=== PATIENT | male | born 1950 | race Caucasian/White ===

== ENCOUNTER → 2016-08-05 07:42 | Outpatient (CLI) | payer MEDICARE ==
[2015-05-20 08:32] VITALS: BMI 30.1
[~2016-08-05 07:42] MED LIST: BAYER CHEWABLE81 MG PO; CELEXA20 MG PO; CLARITIN10 MG/TAB PO; COZAAR50 MG PO; DESYREL50 MG; HYDROCODON-ACE1 EAC7 PO; IMDUR60 MG PO; MOBIC7.5 MG PO; NORVASC10 MG PO; PLAVIX75 MG PO; PRAVACHOL40 MG; PRAVACHOL40 MG PO; PRILOSEC20 MG PO; PROTONIX40 MG PO; SPIRIVA18 MCG; SPIRIVA18 MCG INH; SYMBICORT 16010.2 GM INH; TRAZODONE HCL150 MG PO; VENTOLIN HFA18 GM INH; VOLTAREN100 GM TP; ZESTORETIC 20/21 TAB PO; ZYLOPRIM100 MG PO
[2016-08-05 08:40] LABS: ALBUMIN 3.8 g/dL (3.4-5.0); BILIRUBIN - DIRECT 0.09 mg/dL (0.00-0.30); BILIRUBIN - INDIRECT 0.24 mg/dL (0.00-1.00); BILIRUBIN - TOTAL 0.33 mg/dL (0.2-1.3); PROTEIN - SERUM 7.2 g/dL (6.4-8.2)
== END ==
LOC: D.US 07:42
PROVIDERS: Internal Medicine Gastroenterology
DX: K76.0 Fatty (change of) liver, not elsewhere classified (principal)

== ENCOUNTER 2016-08-08 11:15 | Emergency (ER) | payer MEDICARE ==
[2015-05-20 08:32] VITALS: BMI 30.1
[2016-08-08 12:54] LABS: BASOPHILS 0.6 % (0-2); EOSINOPHILS 2.8 % (0-7); HEMATOCRIT 41.6 % (42.0-54.0); HEMOGLOBIN 14.2 g/dL (13.5-17.5); IMMATURE GRANULOCYTES 0.2 % (0-5); LYMPHOCYTES 34.8 % (15-50); MCH 33.3 pg (26.0-34.0); MCHC 34.1 g/dL (31.0-37.0); MCV 97.4 fL (80.0-100.0); MEAN PLATELET VOLUME 9.8 fL (7.4-10.4); MONOCYTES 10.2 % (2-11); NEUTROPHILS 51.4 % (40-80); RBC 4.27 10x6/uL (4.20-6.10); RDW 12.8 % (11.5-14.5); WBC 5.1 10x3/uL (4.8-10.8)
[2016-08-08 13:19] LABS: PLATELET COUNT 149 10x3/uL (130-400)
[2016-08-08 13:23] LABS: CALC OSMOLALITY 277 mosm/kg (275-300); CALCIUM 9.4 mg/dL (8.5-10.1); CARBON DIOXIDE 26.9 mmol/L (21.0-32.0); CHLORIDE - SERUM 104 mmol/L (98-107); CREATININE - SERUM 1.2 mg/dL (0.6-1.3); GLUCOSE 101 mg/dL (74-106); POTASSIUM - SERUM 4.6 mmol/L (3.5-5.1); SODIUM 138 mmol/L (136-145); UREA NITROGEN 17 mg/dL (7-18); eGFR NON AFRICAN AMERICAN 65 mL/min (90-120)
[2016-08-08 13:26] LABS: TROPONIN-I < 0.017 ng/mL (0.000-0.060)
== END 2016-08-08 16:38 | disposition home or self-care (01) ==
LOC: D.ER 11:15
PROVIDERS: Emergency Medicine
DX: R07.9 Chest pain, unspecified (principal); J44.9 Chronic obstructive pulmonary disease, unspecified; I10 Essential (primary) hypertension; F17.200 Nicotine dependence, unspecified, uncomplicated

== ENCOUNTER 2016-08-23 12:00 | Outpatient (CLI) | payer MEDICARE ==
[~2016-08-23] VITALS: Ht 177.8 cm; Wt 93.2 kg
--- NOTE | ~2016-08-23 | HEMODYNAMI ---
PATIENT:ALLY VALDEZ MEDICAL RECORD: [id number] : 52 LOCATION:[facility] ADMISSION DATE: 08/23/16 Generatedon:08/23/201612:44 Patient name: ALLY VALDEZ Patient #: [id number] SSN: : 1950 Date of study: 08/23/2016 Page: Of Hemodynamic Procedure Report Patient Data Patient Demographics Procedure consent was obtained First Name: ALLY Gender: Male Last Name: COURTNEY : 1950 [facility] Initial: TAMARA Age: 65 year(s) Patient #: [id number] Race: Unknown Additional ID: [id number] Contact details Address: [address] [place] [address] State: [place] City: [place] Zip code: [address] Past Medical History Allergies: No known allergies Admission Admission Data Admission Date: 08/23/2016 Admission Time: 11:00 Lab Results Lab Result Date: 08/23/2016 Lab Result Time: 11:30 CBC Name Units Result Min Max Hematocrit % 41.3 -*(----)-- 42 54 Hemoglobin g/dl 14.1 --(*---)-- 13.5 17.5 Procedure Procedure Types Cath Procedure Diagnostic Procedure [facility] w/Coronaries FFR/IVUS Intra-Coronary IVUS Initial Intra-Coronary IVUS Additional Procedure Description Procedure Date Procedure Date: 08/23/2016 Procedure Start Time: 12:20 Procedure End Time: 12:38 Procedure Staff Name Function Charlene Godoy RT Scrub Rosendo Thompson RN Nurse Ed Stuart MD Performing Physician Doug Ceron RT Monitor Procedure Data Cath Procedure Fluoroscopy Diagnostic fluoroscopy Total fluoroscopy Time: 4.5 time: 4.5 min min Diagnostic fluoroscopy Total fluoroscopy dose: 574 dose: 574 mGy mGy Contrast Material Contrast Material Type Amount (ml) Isovue 300 82 Entry Location Entry Primary Successful Side Size Upsize Upsize Entry Closure Saravia ccessful Closure Location (Fr) 1 (Fr) 2 (Fr) Remarks Device Remarks Radial Right 6 Fr Mechanical artery Short Compression Estimated blood loss: 5 ml Diagnostic catheters Device Type Used For End Catheter Placement Terumo 5Fr Wasco 110cm Procedure catheter Procedure Complications No complications Procedure Medications Medication Administration Route Dosage Oxygen NC 2 l/min Heparin Flush Bag added to field 2 bags (1000units/500ml NS) 0.9% NaCl I.V. 100 ml/hr Radial Cocktail added to field 1 syringe (Verapomil 2mg/Nitro 400mcg/Heparin 1500units) Fentanyl I.V. 100 mcg Versed I.V. 2 mg Fentanyl I.V. 100 mcg Versed I.V. 2 mg Radial Cocktail I.A. 1 syringe (Verapomil 2mg/Nitro 400mcg/Heparin 1500units) Heparin Bolus I.V. 4000 units Hemodynamics Rest Heart Rate: 60 (bpm) Snapshots Pre Cath Intra NCS Post Cath Vital Signs Time Heart Resp SPO2 etCO2 [id number] NIBP (mmHg) Rhythm Pain Sedation Rate (ipm) (%) (mmHg) (mmHg) Status Level (bpm) 12:08:28 57 15 96 0 0 129/75(109) NSR 0 (11) 10(A) , No pain 12:12:42 55 25 98 0 0 133/71(109) NSR 0 (11) 10(A) , No pain 12:17:01 55 19 97 0 0 116/67(92) NSR 0 (11) 10(A) , No pain 12:21:12 60 18 96 0 0 112/67(91) NSR 0 (11) 9(A) , No pain 12:25:19 73 19 93 0 0 103/74(100) NSR 0 (11) 9(A) , No pain 12:29:27 63 16 94 0 0 116/61(89) NSR 0 (11) 9(A) , No pain 12:33:37 70 18 95 0 0 123/77(97) NSR 0 (11) 9(A) , No pain 12:37:51 69 17 92 0 0 136/73(103) NSR 0 (11) 9(A) , No pain Medications Time Medication Route Dose Verified Delivered Reason Note s Effectiveness by by 12:07:51 Oxygen NC 2 l/min Rosendo Robbins Per physician Jay Thompson RN RN 12:08:01 Heparin Flush added 2 bags Rosendo Robbins used for Bag to Jay Thompson RN procedure (1000units/500ml field RN NS) 12:08:12 0.9% NaCl I.V. 100 Rosendo Rosendo Per physician ml/hr Jay Thompson RN RN 12:08:41 Radial Cocktail added 1 Rosendo Rosendo used for (Verapomil to syringe Jay Thompson RN procedure 2mg/Nitro field RN 400mcg/Hepari 12:17:42 Fentanyl I.V. 100 mcg Rosendo Rosendo for sedation Jay Thompson RN RN 12:17:50 Versed I.V. 2 mg Rosendo Rosendo for sedation Jay Thompson RN RN 12:20:50 Fentanyl I.V. 100 mcg Rosendo Rosendo for sedation Jay Thompson RN RN 12:20:52 Versed I.V. 2 mg Rosendo Rosendo for sedation Jay Thompson RN RN 12:22:20 Radial Cocktail I.A. 1 Rosendo Philiprey for (Verapomil syringe Jay Stuart MD vasodilation 2mg/Nitro RN 400mcg/Hepari 12:27:09 Heparin Bolus I.V. 4000 Rosendo Philiprey for units Jay Stuart MD anticoagulation nanny babysitter Log Time Note 11:24:28 Time tracking: Regular hours 11:24:32 Plan of Care:Hemodynamics will remain stable., Cardiac rhythm will remain stable., Comfort level will be maintained., Respiratory function will remain adequate., Patient/ family verbilizes understanding of procedure., Procedure tolerated without complication., Recovers from procedure without complications.. 11:50:25 Charlene Counts RT(R) sent for patient. Start room use. 12:07:16 Patient received from Pre/Post Procedure Room to CCL 1 Alert and oriented. Tansferred to table in Supine position. 12:07:17 Correct patient and procedure confirmed by team. 12:07:17 Warm blankets applied, and chiquita hugger turned on for patient comfort. 12:07:19 Signed procedure consent form obtained from patient. 12:07:20 ECG and BP/O2 sat monitors applied to patient. 12:07:21 Vital chart was started 12:07:22 Full Disclosure recording started 12:07:51 Oxygen 2 l/min NC was administered by Rosendo Thompson RN; Per physician; 12:08:01 Heparin Flush Bag (1000units/500ml NS) 2 bags added to field was administered by Rosendo Thompson RN; used for procedure; 12:08:12 0.9% NaCl 100 ml/hr I.V. was administered by Rosendo Thompson RN; Per physician; 12:08:41 Radial Cocktail (Verapomil 2mg/Nitro 400mcg/Heparin 1500units) 1 syringe added to field was administered by Rosendo Thompson RN; used for procedure; 12:12:57 Baseline sample Acquired. 12:13:02 Rhythm: sinus rhythm 12:13:56 Pre-procedure instructions explained to patient. 12:13:57 Pre-op teaching completed and patient verbalized understanding. 12:13:59 Family in waiting room. 12:14:00 Patient NPO since Midnight. 12:14:07 Patient allergic to No known allergies 12:14:09 Is the patient allergic to Iodine/contrast media? No. 12:14:10 Is patient on blood thinner?Yes 12:14:12 ACC The patient was administered the following blood thiners within the last 24 hours: ACCPlavix 12:14:16 Patient diabetic? No. 12:14:19 Snore? Yes 12:14:19 Previous problem with sedation/anesthesia? No ? 12:14:20 Sleep apnea? Yes 12:14:21 Deviated septum? No 12:14:22 Opens mouth fully? Yes 12:14:30 Airway obstruction? Yes COPD 12:14:31 Sticks out tongue? Yes 12:14:34 Dentures? No ? 12:14:41 Modified Kenny's test Ulnar < 7 seconds 12:14:42 Patient pain scale 0/10 ?. 12:14:51 IV patent on arrival in left hand with 0.9% NaCl at [facility]. 12:15:46 Lab Result : Hematocrit 41.3 % 12:15:46 Lab Result : Hemoglobin 14.1 g/dl 12:15:49 Lab results completed and on chart. 12:15:51 Right Radial & Right Groin area was prepped with chlora-prep and draped in sterile fashion 12:15:52 Sharps counted by scrub and verified by R.N. 12:15:52 Alarms reviewed by R. N. 12:16:16 Use device set Radial Dx 12:16:17 Tegaderm 4 x 4 opened to sterile field. 12:16:17 MBrace Wrist Support opened to sterile field. 12:16:18 Acist Manifold opened to sterile field. 12:16:19 Acist Hand Control opened to sterile field. 12:16:20 Medline Cath Pack opened to sterile field. 12:16:20 Acist Syringe opened to sterile field. 12:16:21 Terumo 6Fr Slender Glidesheath opened to sterile field. 12:16:21 Bag Decanter opened to sterile field. 12:16: St Anup 260cm J .035 wire opened to sterile field. 12:16:33 Physician paged 12:17:06 Physician arrived 12:17:07 Final Timeout: patient, procedure, and site verified with staff and physician. All members of the team are in agreement. 12:17:07 --------ALL STOP TIME OUT------ 12:17:09 Right Radial & Right Groin site verified by team. 12:17:12 Physical assessment completed. ASA score P 2 - A patient with mild systemic disease as per Ed Stuart MD. 12:17:14 Sedation plan: IV Moderate Sedation Versed, Fentanyl 12:17:42 Fentanyl 100 mcg I.V. was administered by Rosendo Thompson RN; for sedation; 12:17:50 Versed 2 mg I.V. was administered by Rosendo Thompson RN; for sedation; 12:20:37 Zero performed for pressure channel P1 12:20:43 Procedure started. 12:20:48 Local anesthetic to right radial artery with Lidocaine 2% by Ed Stuart MD.INITIAL ACCESS ONLY 12:20:50 Fentanyl 100 mcg I.V. was administered by Rosendo Thompson RN; for sedation; 12:20:52 Versed 2 mg I.V. was administered by Rosendo Thompson RN; for sedation; 12:21:20 A 6 Fr Short sheath was inserted into the Right Radial artery 12:21:24 Zero performed for pressure channel P1 12:22:20 Radial Cocktail (Verapomil 2mg/Nitro 400mcg/Heparin 1500units) 1 syringe I.A. was administered by Ed Stuart MD; for vasodilation; 12:22:35 A Terumo 5Fr Wasco 110cm catheter was advanced over the wire and used for Procedure. 12::53 LV gram done using WOODRUFF 12::56 Injector settings: Ml/sec: 5, Volume: 15, 12:23:17 EF : 60 % 12:23:23 LCA angiography performed. 12:24:25 Loami [place]agleye IVUS Catheter opened to sterile field. 12:24:26 Merit BasixCompak Inflation Kit opened to sterile field. 12:24:28 Arteaga Whisper J 300cm 0.014 guide wire opened to sterile field. 12:25:15 RCA angiography performed. 12:25:16 Catheter removed. 12:25:51 Cordis 6FR XBLAD 3.5 guide catheter opened to sterile field. 12:25:58 6 Fr XBLAD 3.5 guide catheter was inserted over the wire 12:27:09 Heparin Bolus 4000 units I.V. was administered by Ed Stuart MD; for anticoagulation; 12:27:14 WHISPER wire advanced. 12:27:31 Wire advanced across lesion. 12:27:59 IVUS catheter advanced over wire. 12:29:45 IVUS pass to Circ lesion performed. 12:29:47 IVUS catheter removed over wire. 12:29:55 Wire redirected to LAD. 12:30:01 IVUS catheter advanced over wire. 12:30:05 IVUS pass to LAD lesion performed. 12:30:49 IVUS catheter removed over wire. 12:30:53 Wire removed. 12:30:54 Guide catheter removed. 12:31:03 Terumo TR Band Standard opened to sterile field. 12:32:58 Sheath removed intact; hemostasis achieved with Mechanical Compression to the Right Radial artery. 12:33:01 Procedure ended.(Physican Out) 12:33:05 Fluoroscopy time 04.50 minutes. 12:33:10 Fluoroscopy dose: 574 mGy 12:33:10 Flurop Dose total: 574 12:36:17 Contrast amount:Isovue 300 82ml. 12:36:19 Sharps counted by scrub and verified by R.N. 12:36:25 TR band inflated with 11cc of air. 12:36:40 Insertion/operative site no bleeding no hematoma. 12:36:45 Post Procedure Pulses reassessed and unchanged 12:36:47 Post-procedure physical assessment completed. ASA score P 2 - A patient with mild systemic disease as per Ed Stuart MD. 12:36:49 Post procedure rhythm: unchanged. 12:36:50 Estimated blood loss: 5 ml 12:36:52 Post procedure instruction explained to patient.Patient verbalizes understanding. 12:36:52 Post procedure instruction explained to patient.Patient verbalizes understanding. 12:36:53 Patient needs reinforcement of post procedure teaching. 12:37:06 Procedure type changed to Cath procedure, Diagnostic procedure, LHC, LHC w/Coronaries, FFR/IVUS, Intra-Coronary IVUS Initial, Intra-Coronary IVUS Additional 12:38:22 Procedure and supply charges have been captured, reviewed, submitted and are correct. 12:38:24 Procedure Complication : No complications 12:38:26 Vital chart was stopped 12:38:27 See physician's report for complete and final results. 12:38:28 Report given to Pre/Post Procedure Room. 12:38:30 Patient transfered to Pre/Post Procedure Room with Stretcher. 12:38:32 Full Disclosure recording stopped 12:38:32 Procedure ended. 12:38:39 End room use (Document Last) 12:39:14 H&P Date Dictated: 08/10/2016 Within 30 days and on chart., H&P Addendum completed by physician on day of procedure. (MUST COMPLETE FOR ALL OUTPATIENTS). Device Usage Item Name Manufacture Quantity Catalog Hospital Part Current Minimal Lot# / Number Charge Number Stock Stock Serial# Code MBrace [facility] 1 140-0250-00 [id number] 73229 609485 5 Wrist Vascular Support Dynamics Tegaderm 4 3M 1 1626W 676308 304145 949777 5 x 4 Acist Acist 1 34892 641667 396633 701943 5 Manifold Medical Systems Inc Acist Hand Acist 1 23319 718520 486345 848001 5 Control Medical Systems Inc Acist Acist 1 33327 902530 962526 158393 20 Syringe Medical Systems Inc Medline Cardinal 1 [id number] 351442 78445 638698 5 Cath Pack Health Bag Microtek 1 2002S [id number] 55419 914274 5 Decanter Medical Inc. Terumo 6Fr Terumo 1 [id number] 938234 075239 129340 [address] An[address] Anup 1 546951 111014 889215 312376 30 260cm J .035 wire Terumo 5Fr Terumo 1 75-6027 977160 829157 011691 5 Wasco 110cm catheter Loami Loami 1 [id number] 937193 725832 132417 8 [place] Eagleye IVUS Catheter [facility] 1 [id number] 809607 427992 339864 15 BasixCompak Medical Inflation Kit Arteaga Arteaga 1 [id number] 482485 995071 396449 5 Whisper J Vascular 300cm 0.014 guide wire Cordis 6FR Cardinal 1 [id number] 294220 813306 580657 10 XBLAD 3.5 Health guide catheter Terumo TR Terumo 1 [id number] 826679 445704 589065 40 Band Standard Signature Audit [place] Stage Time Signature Unsigned Intra-Procedure 08/23/2016 Doug Ceron RT(R) 12:40:42 PM RT(R) 08/23/2016 12:43:32 PM Intra-Procedure 08/23/2016 Doug Ceron 12:44:10 PM RT(R) Signatures Monitor : Doug Ceron RT Signature : Date : Time : [facility] [address] [place] [address]
[2016-08-23 11:01] VITALS: BP 139/62; Ht 177.8 cm; Wt 93.2 kg
[2016-08-23 11:57] LABS: BASOPHILS 0.9 % (0-2); EOSINOPHILS 2.8 % (0-7); HEMATOCRIT 41.3 % (42.0-54.0); HEMOGLOBIN 14.1 g/dL (13.5-17.5); IMMATURE GRANULOCYTES 0.2 % (0-5); MCHC 34.1 g/dL (31.0-37.0); MCV 93.9 fL (80.0-100.0); MEAN PLATELET VOLUME 9.7 fL (7.4-10.4); MONOCYTES 9.4 % (2-11); NEUTROPHILS 57.7 % (40-80); PLATELET COUNT 183 10x3/uL (130-400); RDW 12.4 % (11.5-14.5); WBC 4.3 10x3/uL (4.8-10.8)
[2016-08-23 12:10] LABS: ANION GAP 12.1 mmol/L (8-16); CALCIUM 9.1 mg/dL (8.5-10.1); CARBON DIOXIDE 27.2 mmol/L (21.0-32.0); CREATININE - SERUM 1.2 mg/dL (0.6-1.3); POTASSIUM - SERUM 4.3 mmol/L (3.5-5.1)
--- NOTE | 2016-08-30 15:49 | OP ---
PATIENT NAME: ALLY VALDEZ MEDICAL RECORD: [id number] :52 LOCATION:D.[facility] ADMISSION DATE: SURGEON: NAZANIN ESTEVES MD DATE OF OPERATION: 08/23/2016 PROCEDURES: 1. Left heart catheterization. 2. Selective coronary angiography. 3. Left ventriculogram. 4. Intravascular ultrasound of the LAD and left circumflex. INDICATIONS: Chest pain, coronary artery disease. PROCEDURE IN DETAIL: After informed consent was obtained and after detailed explanation of risks, benefits as well as alternative therapies, the patient elected to proceed with angiogram and heart catheterization. The right radial area was prepped and draped in normal sterile fashion. The right radial artery was cannulated via modified Seldinger technique with placement of 6-Estonian sheath. All catheters exchanged through this sheath. FINDINGS: Left ventriculogram was performed in the standard 30-degree WOODRUFF view, reveals good cardiac wall motion throughout all segments. Overall ejection fraction estimated at 60%. SELECTIVE CORONARY ANGIOGRAPHY: 1. Left main showed no significant angiographic disease. 2. Left anterior descending has [id number]-[id number] irregularities, but no flow-limiting stenosis. Intravascular ultrasound reveals that there is no significant angiographic disease. 3. Left circumflex has mild irregularities, but no flow-limiting stenosis. Intravascular ultrasound confirmed that there is no significant disease. 4. Right coronary has previously placed stents. These are widely patent with no significant restenosis. No disease elsewise throughout the RCA or its branches. OVERALL IMPRESSION: Wide patency of the previously placed stents. No disease elsewise. Continue medical management of the coronary artery disease and cardiac risk factors. TRANSINT:[id number] Voice Confirmation ID: [id number] DOCUMENT ID: [id number] NAZANIN ESTEVES MD at 1549 CC: [id number] DICTATION DATE: 08/23/16 1237 CHIEF INFORMATION OFFICER: 08/23/16 2307 [facility]P CLI 08/23/16 [id number] [place] [address]
== END 2016-08-23 23:59 | disposition home or self-care (01) ==
LOC: D.CATH 12:00
PROVIDERS: Internal Medicine Interventional Cardiology
DX: I25.119 Atherosclerotic heart disease of native coronary artery with unspecified angina pectoris (principal); R94.30 Abnormal result of cardiovascular function study, unspecified; Z01.812 Encounter for preprocedural laboratory examination

== ENCOUNTER → 2017-03-16 09:37 | Outpatient (CLI) | payer MEDICARE ==
[2016-08-23 11:01] VITALS: BMI 29.4
== END | disposition home or self-care (01) ==
LOC: D.RAD 09:37
DX: R05 Cough (principal)

== ENCOUNTER → 2018-04-16 09:32 | Outpatient (CLI) | payer MEDICARE ==
[2016-08-23 11:01] VITALS: BMI 29.4
[~2018-04-16 09:32] MED LIST changes: +FLOMAX0.4 MG PO
--- NOTE | 2018-04-18 16:39 | ST ---
PATIENT:ALLY VALDEZ MEDICAL RECORD: [id number] SEX: M [facility] ORDER #: ADMISSION DATE: 04/16/18 AGE OF PATIENT: 67 REFERRING PHYSICIAN: INTERPRETING PHYSICIAN: NAZANIN ESTEVES MD DATE OF SERVICE: 04/16/2018 PROCEDURE: Nuclear Stress Test. INDICATION: Coronary artery disease, angina, hypertension. DESCRIPTION: He was exercised on standard Lexiscan protocol with 31 mCi of sestamibi injected at peak stress, 11 mCi were used previously for rest images. FINDINGS: Gated SPECT reveals mildly depressed ejection fraction of 48% with decreased thickening and brightening throughout the inferior segments. SPECT imaging: Cardiolite was used as a myocardial perfusion agent. There is a mixed perfusion defect inferiorly. This is partially fixed, partial reversible, includes the basal, mid, apical, inferior segments as well as the apex itself. OVERALL IMPRESSION: 1. This is an abnormal nuclear stress test with a mixed perfusion defect inferiorly and apically. 2. Gated SPECT reveals a mildly depressed, but preserved ejection fraction 48%. In this patient with ongoing symptomatology, the current scan does suggest the presence of hemodynamically significant coronary artery disease. We will proceed with coronary angiography as followup study. TRANSINT:[id number] Voice Confirmation ID: [id number] DOCUMENT ID: [id number] NAZANIN ESTEVES MD at 1639 CC: [id number] DICTATION DATE: 04/17/18 1603 ENTERTAINMENT LAWYER: 04/18/18 0723 [facility] CLI 04/16/[address] [address]
== END | disposition home or self-care (01) ==
LOC: D.HCCARDIO 09:32
DX: I25.119 Atherosclerotic heart disease of native coronary artery with unspecified angina pectoris (principal); I10 Essential (primary) hypertension

== ENCOUNTER 2018-04-23 09:07 | Outpatient (CLI) | payer MEDICARE ==
[~2018-04-23] VITALS: Ht 177.8 cm; Wt 95.5 kg
--- NOTE | ~2018-04-23 | HEMODYNAMI ---
PATIENT:ALLY VALDEZ MEDICAL RECORD: [id number] : 52 LOCATION:[facility] ADMISSION DATE: 04/23/18 Generatedon:04/23/201812:06 Patient name: ALLY VALDEZ Patient #: [id number] SSN: : 1950 Date of study: 04/23/2018 Page: Of Hemodynamic Procedure Report Patient Data Patient Demographics Procedure consent was obtained First Name: ALLY Gender: Male Last Name: COURTNEY : 1950 [facility] Initial: TAMARA Age: 67 year(s) Patient #: [id number] Race: Unknown Additional ID: [id number] Contact details Address: [address] [place] [address] State: [place] City: [place] Zip code: [address] Past Medical History Allergies: No known allergies Admission Admission Data Admission Date: 04/23/2018 Admission Time: 9:07 Admit Source: Other Weight (lbs.): 211.64 Weight (kg.): 96 Lab Results Lab Result Date: 04/23/2018 Lab Result Time: 9:39 Biochemistry Name Units Result Min Max BUN mg/dl 21 --(----)-* 7 18 Creatinine mg/dl 1.4 --(----)*- 0.6 1.3 CBC Name Units Result Min Max Hematocrit % 44.2 --(*---)-- 42 54 Hemoglobin g/dl 14.8 --(-*--)-- 13.5 17.5 Procedure Procedure Types Cath Procedure Diagnostic Procedure LHC LHC w/Coronaries Procedure Description Procedure Date Procedure Date: 04/23/2018 Procedure Start Time: 11:56 Procedure End Time: 12:03 Procedure Staff Name Function Ed Stuart MD Performing Physician Benjamin Tee RT Monitor Doug Ceron RT Scrub Rosendo Thompson RN Nurse Procedure Data Cath Procedure Fluoroscopy Diagnostic fluoroscopy Total fluoroscopy Time: 1.5 time: 1.5 min min Diagnostic fluoroscopy Total fluoroscopy dose: 602 dose: 602 mGy mGy Contrast Material Contrast Material Type Amount (ml) Isovue 300 66 Entry Location Entry Primary Successful Side Size Upsize Upsize Entry Closure Saravia ccessful Closure Location (Fr) 1 (Fr) 2 (Fr) Remarks Device Remarks Radial Right 6 Fr Manual artery Short Compression Estimated blood loss: 10 ml Diagnostic catheters Device Type Used For End Catheter Placement DIAGNOSTIC Rembert 110cm 5 Procedure Fr catheter ([id number]) Procedure Complications No complications Procedure Medications Medication Administration Route Dosage Oxygen etCO2 Nasal cannula 2 l/min Heparin Flush Bag added to field 2 bags (1000units/500ml NS) 0.9% NaCl I.V. 100 ml/hr Radial Cocktail added to field 1 syringe (Verapomil 2mg/Nitro 400mcg/Heparin 1500units) Lidocaine 2% added to field 20 Fentanyl I.V. 50 mcg Versed I.V. 1 mg Fentanyl I.V. 50 mcg Versed I.V. 1 mg Radial Cocktail I.A. 1 syringe (Verapomil 2mg/Nitro 400mcg/Heparin 1500units) Fentanyl I.V. 50 mcg Fentanyl I.V. 50 mcg Hemodynamics Rest HGB: 14.8 (g/dl) Heart Rate: 69 (bpm) Snapshots Pre Cath Intra NCS Post Cath Vital Signs Time Heart Resp SPO2 etCO2 NIBP (mmHg) Rhythm Pain Sedation Rate (ipm) (%) (mmHg) Status Level (bpm) 11:46:29 69 16 93 26.5 132/76(93) NSR 0 (11) 10(A) , No pain 11:50:41 70 17 94 29.5 117/77(89) NSR 0 (11) 10(A) , No pain 11:54:51 65 17 88 21.2 117/69(88) NSR 0 (11) 10(A) , No pain 11:58:56 80 17 91 44.7 121/70(105) NSR 0 (11) 9(A) , No pain 12:03:02 72 17 92 49.9 115/84(108) NSR 0 (11) 9(A) , No pain Medications Time Medication Route Dose Verified Delivered Reason Notes Effectiveness by by 11:46:50 Oxygen etCO2 2 l/min Ed Thompson RN physician cannula 11:46:57 Heparin Flush added 2 bags Ed Robbins used for Bag to Narciso Thompson RN procedure (1000units/500ml field NS) 11:47:05 0.9% NaCl I.V. 100 Edesha Robbins Per ml/hr Narciso Thompson RN physician 11:47:12 Radial Cocktail added 1 Ed Robbins used for (Verapomil to syringe Narciso Thompson RN procedure 2mg/Nitro field 400mcg/Heparin 1500units) 11:47:22 Lidocaine 2% added 20ml Ed Beckmany used for to vial Narciso Thompson RN procedure field 11:49:44 Fentanyl I.V. 50 mcg Ed Robbins for sedation Narciso Thompson RN 11:49:50 Versed I.V. 1 mg Ed Robbins for sedation Narciso Thompson RN 11:56:44 Fentanyl I.V. 50 mcg Ed Robbins for sedation Narciso Thompson RN 11:56:48 Versed I.V. 1 mg Ed Robbins for sedation Narciso Thompson RN 11:56:59 Radial Cocktail I.A. 1 Ed Ed for (Verapomil syringe Narciso Stuart MD vasodilation 2mg/Nitro 400mcg/Heparin 1500units) 11:58:16 Fentanyl I.V. 50 mcg Ed Robbins for sedation Narciso Thompson RN 12:00:26 Fentanyl I.V. 50 mcg Ed Robbins for sedation Narciso Thompson RN Procedure Log Time Note 11:20:55 Rosendo Thompson RN sent for patient. Start room use. 11:30:37 Informed consent obtained and on chart 11:30:41 Admit Source: Other 11:30:54 Diagnostic Cath status Elective 11:30:55 Time tracking: Regular hours (M-F 7:00 - 5:00) 11:30:58 Plan of Care:Hemodynamics will remain stable., Cardiac rhythm will remain stable., Comfort level will be maintained., Respiratory function will remain adequate., Patient/ family verbilizes understanding of procedure., Procedure tolerated without complication., Recovers from procedure without complications.. 11:31:07 H&P Date Dictated: 04/10/2018 Within 30 days and on chart., H&P Addendum completed by physician on day of procedure. (MUST COMPLETE FOR ALL OUTPATIENTS). 11:32:46 Lab Result : BUN 21 mg/dl ::46 Lab Result : Hemoglobin 14.8 g/dl ::46 Lab Result : Creatinine 1.4 mg/dl ::46 Lab Result : Hematocrit 44.2 % 11::48 Lab results completed and on chart. 11:40:53 Patient received from Pre/Post Procedure Room to CCL 1 Alert and oriented. Tansferred to table in Supine position. 11:40:54 Warm blankets applied, and chiquita hugger turned on for patient comfort. 11:40:55 Correct patient and procedure confirmed by team. 11:40:56 ECG and BP/O2 sat monitors applied to patient. 11:45:32 Vital chart was started 11:46:31 Baseline sample Acquired. 11:46:35 Rhythm: sinus rhythm 11:46:39 Full Disclosure recording started 11:46:40 Pre-procedure instructions explained to patient. 11:46:41 Pre-op teaching completed and patient verbalized understanding. 11:46:45 Family in patients room. 11:46:47 Patient NPO since Midnight. 11:46:50 Oxygen 2 l/min etCO2 Nasal cannula was administered by Rosendo Thompson RN; Per physician; 11:46:52 Is the patient allergic to Iodine/contrast media? No. 11:46:56 Is patient on blood thinner?Yes 11:46:57 Heparin Flush Bag (1000units/500ml NS) 2 bags added to field was administered by Rosendo Thompson RN; used for procedure; 11:46:59 ACC The patient was administered the following blood thiners within the last 24 hours: ACCPlavix 11:47:05 0.9% NaCl 100 ml/hr I.V. was administered by Rosendo Thompson RN; Per physician; 11:47:07 Patient diabetic? No. 11:47:10 Previous problem with sedation/anesthesia? No ? 11:47:10 Snore? Yes 11:47:11 Sleep apnea? Yes 11:47:12 Radial Cocktail (Verapomil 2mg/Nitro 400mcg/Heparin 1500units) 1 syringe added to field was administered by Rosendo Thompson RN; used for procedure; 11:47:12 Deviated septum? No 11:47:13 Opens mouth fully? Yes 11:47:13 Sticks out tongue? Yes 11:47:19 Airway obstruction? Yes COPD 11:47:22 Lidocaine 2% 20ml vial added to field was administered by Rosendo Thompson RN; used for procedure; 11:47:23 Dentures? No ? 11:47:25 Pre procedure: right dorsailis pedis pulse 1+ Palpable, but thready & weak; easily obliterated 11:47:26 Modified Kenny's test Ulnar < 7 seconds 11:47:28 Patient pain scale 0/10 ?. 11:47:32 IV patent on arrival in left forearm with 0.9% NaCl at [facility]. 11:47:36 Right Radial & Right Groin area was prepped with chlora-prep and draped in sterile fashion 11:47:37 Alarms reviewed by R. N. 11:47:38 Sharps counted by scrub and verified by R.N. 11:47:41 --------ALL STOP TIME OUT------ 11:47:42 Final Timeout: patient, procedure, and site verified with staff and physician. All members of the team are in agreement. 11:47:44 Right Radial & Right Groin site verified by team. 11:47:47 Physical assessment completed. ASA score P 2 - A patient with mild systemic disease as per Ed Stuart MD. 11:47:50 Sedation plan: IV Moderate Sedation Medication:Versed, Fentanyl 11:48:27 Use device set Radial Dx or PCI 11:48:28 Tegaderm 4 x 4 (1626W) opened to sterile field. 11:48:29 ACIST Manifold (31713) opened to sterile field. 11:48:29 ACIST Hand Control (75859) opened to sterile field. 11:48:30 ACIST Syringe (21024) opened to sterile field. 11:48:31 Medline Cath Pack ([id number]) opened to sterile field. 11:48:31 Bag Decanter () opened to sterile field. 11:48:32 DIAGNOSTIC WIRE .035 260cm J wire (677985) opened to sterile field. 11:48:33 MBrace Wrist Support ([id number]) opened to sterile field. 11:48:34 SHEATH 6FR Slender (77-3383) opened to sterile field. 11:49:44 Fentanyl 50 mcg I.V. was administered by Rosendo Thompson RN; for sedation; 11:49:50 Versed 1 mg I.V. was administered by Rosendo Thompson RN; for sedation; 11:55:43 Patient Weight : 211.64 lbs 11:55:56 Procedure started. 11:56:00 Local anesthetic to right radial artery with Lidocaine 2% by Ed Stuart MD.INITIAL ACCESS ONLY 11:56:33 A 6 Fr Short sheath was inserted into the Right Radial artery 11:56:44 Fentanyl 50 mcg I.V. was administered by Rosendo Thompson RN; for sedation; 11:56:48 Versed 1 mg I.V. was administered by Rosendo Thompson RN; for sedation; 11:56:55 A DIAGNOSTIC Rembert 110cm 5 Fr catheter (486641) was advanced over the wire and used for Procedure. 11:56:59 Radial Cocktail (Verapomil 2mg/Nitro 400mcg/Heparin 1500units) 1 syringe I.A. was administered by Ed Stuart MD; for vasodilation; 11:57:51 LV angiography performed. 11:57:52 LV gram done using WOODRUFF 11:57:56 EF : 50 % 11:58:01 Injector settings: Ml/sec: 7, Volume: 15, 11:58:16 Fentanyl 50 mcg I.V. was administered by Rosendo Thompson RN; for sedation; 11:58:32 RCA angiography performed. 11:58:56 Catheter exchanged over wire. 11:59:23 GUIDE 6FR XBLAD 3.5 catheter ([id number]) opened to sterile field. 11:59:50 6 Fr XBLAD 3.5 guide catheter was inserted over the wire 12:00:26 Fentanyl 50 mcg I.V. was administered by Rosendo Thompson RN; for sedation; 12:00:37 LCA angiography performed. 12:00:46 Catheter removed. 12:00:52 TR BAND Standard ([id number]) opened to sterile field. 12:01:21 Sheath removed intact; hemostasis achieved with Manual Compression to the Right Radial artery. 12:01:23 Procedure ended.(Physican Out) 12:02:13 Fluoroscopy time 01.50 minutes. 12:02:17 Fluoroscopy dose: 602 mGy 12:02:17 Flurop Dose total: 602 12:02:20 Contrast amount:Isovue 300 66ml. 12:02:22 Sharps counted by scrub and verified by R.N. 12:02:24 TR band inflated with 10cc of air. 12:02:25 Insertion/operative site no bleeding no hematoma. 12:02:26 Post Procedure Pulses reassessed and unchanged 12:02:28 Post-procedure physical assessment completed. ASA score P 2 - A patient with mild systemic disease as per Ed Stuart MD. 12:02:31 Post procedure rhythm: unchanged. 12:02:33 Estimated blood loss: 10 ml 12:02:35 Post procedure instruction explained to patient.Patient verbalizes understanding. 12:02:35 Patient needs reinforcement of post procedure teaching. 12:02:39 Procedure and supply charges have been captured, reviewed, submitted and are correct. 12:02:42 Procedure Complication : No complications 12::59 Vital chart was stopped 12:02:59 See physician's report for complete and final results. 12:03:00 Report given to Pre/Post Procedure Room. 12:03:03 Patient transfered to Pre/Post Procedure Room with Stretcher. 12:03:05 Procedure ended. 12:03:05 Full Disclosure recording stopped 12:06:18 End room use (Document Last) Device Usage Item Name Manufacture Quantity Catalog Hospital Part Current Minimal Lot# / Number Charge Number Stock Stock Serial# Code Tegaderm 4 3M 1 [id number] 936038 5 x 4 (1626W) ACIST Acist 1 95099 036700 869471 122308 5 Manifold Medical (86194) Systems Inc ACIST Hand Acist 1 17587 823739 788805 557495 5 Control Medical (79356) Systems Inc ACIST Acist 1 47678 761695 974294 459114 20 Syringe Medical (43212) Systems Inc Medline Medline 1 [id number] 001185 95907 801108 5 Cath Pack ([id number]) Bag Microtek 1 031549 23772 810654 5 Decanter Medical Inc. () DIAGNOSTIC St Anup 1 598793 862742 159743 537646 30 WIRE .035 260cm J wire (019238) MBrace Advanced 1 140-0250-00 407908 73880 419467 5 Wrist Vascular Support Dynamics ([id number]) SHEATH 6FR Terumo 1 [id number] 185506 207976 724462 5 Slender (46-5880) DIAGNOSTIC Terumo 1 89-5778 015374 327946 530948 5 Rembert 110cm 5 Fr catheter (309548) GUIDE 6FR Cardinal 1 [id number] 239578 419200 700004 10 XBLAD 3.5 Health catheter (65788272) TR BAND Terumo 1 [id number] 320797 311521 534083 40 Standard ([id number]) Signature Audit [place] Stage Time Signature Unsigned Intra-Procedure 04/23/2018 Benjamin Tee 12:06:36 PM RT(R) Signatures Monitor : Benjamin Tee RT Signature : Date : Time : [address] [address]
[~2018-04-23 09:07] MED LIST changes: -FLOMAX0.4 MG PO
[2018-04-23] MEDS ORDERED: FLOMAX0.4 MG PO (09:31)
[2018-04-23 09:43] VITALS: BP 146/69; Ht 177.8 cm; Wt 95.5 kg
[2018-04-23 09:48] LABS: CALCIUM 8.8 mg/dL (8.5-10.1); CARBON DIOXIDE 26.3 mmol/L (21.0-32.0); CREATININE - SERUM 1.4 mg/dL (0.6-1.3); POTASSIUM - SERUM 4.3 mmol/L (3.5-5.1)
[2018-04-23 09:50] LABS: BASOPHILS 1.7 % (0-2); HEMATOCRIT 44.2 % (42.0-54.0); HEMOGLOBIN 14.8 g/dL (13.5-17.5); IMMATURE GRANULOCYTES 0.4 % (0-5); LYMPHOCYTES 29.1 % (15-50); MCH 30.5 pg (26.0-34.0); MCHC 33.5 g/dL (31.0-37.0); MCV 90.9 fL (80.0-100.0); MEAN PLATELET VOLUME 10.1 fL (7.4-10.4); MONOCYTES 12.2 % (2-11); NEUTROPHILS 52.6 % (40-80); PLATELET COUNT 175 10x3/uL (130-400); RBC 4.86 10x6/uL (4.20-6.10); RDW 14.2 % (11.5-14.5); WBC 4.7 10x3/uL (4.8-10.8)
--- NOTE | 2018-04-23 12:21 | NUR ---
RECEIVED PT FROM AIRPLANE REFUELER, PT IS ALERT, DENIES ANY C/O. VSS, TR BAND IS CDI, FINGERS WARM AND CAP REFILL IS BRISK. AT BEDSIDE, CALL LIGHT IN REACH.
--- NOTE | 2018-04-23 12:40 | NUR ---
PT SLEEPING, RESP WITH EASE ON O2 AT 2LPM VIA NC. TR BAND IS CDI, FINGERS WARM AND CAP REFILL IS BRISK. AT BEDSIDE AND CALL LIGHT IN REACH.
--- NOTE | 2018-04-23 12:56 | NUR ---
PT ALERT, PO FLUIDS AND SANDWICH SERVED. TR BAND IS CDI, FINGERS WARM AND CAP REFILL IS BRISK.
--- NOTE | 2018-04-23 13:23 | NUR ---
3 CC OF AIR WEANED FROM TR BAND WITH NO BLEEDING NOTED. FINGERS WARM AND CAP REFILL IS BRISK.
--- NOTE | 2018-04-23 13:43 | NUR ---
4 CC OF AIR WEANED FROM TR BAND WITH NO BLEEDING NOTED.
--- NOTE | 2018-04-23 14:17 | NUR ---
1352 ALL REMAINING AIR WEANED FROM TR BAND WITH NO BLEEDING NOTED. FINGERS WARM AND PULSES PALPABLE. DC INSTRUCTIONS REVIEWED WITH PT WHO VERBALIZES UNDERSTANDING. IV DC'D WITH CATH INTACT AND PT IS DRESSING FOR DC TO HOME . PT HAS VOIDED 400 CC CLEAR YELLOW URINE TO URINAL. 1357 2X2 AND TEGADERM APPLIED TO CATH SITE. WRIST IMMOBILIZER IN PLACE. 1415 PT ESCORTED TO PRIVATE AUTO VIA WC BY NURSE WITH DRIVING HIM HOME. DRESSING TO RIGHT WRIST IS CDI, FINGERS WARM PULSES PALPABLE AND PT DENIES ANY C/O AT TIME OF DC TO HOME.
--- NOTE | 2018-04-24 10:23 | OP ---
PATIENT NAME: ALLY VALDEZ MEDICAL RECORD: [id number] :52 LOCATION:D.[facility] ADMISSION DATE: SURGEON: NAZANIN ESTEVES MD DATE OF OPERATION: 04/23/2018 DATE OF SERVICE: 04/23/2018 PROCEDURES: 1. Left heart catheterization. 2. Selective coronary angiography. 3. Left ventriculogram. INDICATION: Chest pain compatible with angina and coronary artery disease. PROCEDURE IN DETAIL: After informed consent was obtained and after detailed explanation of risks, benefits as well as alternative therapies, the patient elected to proceed with angiogram and heart catheterization. The right radial area was prepped and draped in normal sterile fashion. Right radial artery was cannulated via modified Seldinger technique with placement of 6-Greenlandic sheath. All catheters exchanged through this sheath. FINDINGS: The left ventriculogram was performed in standard 30-degree WOODRUFF view, reveals good cardiac wall motion throughout all segments. Overall ejection fraction estimated 60%. SELECTIVE CORONARY ANGIOGRAPHY: 1. Left main is with no significant angiographic disease. 2. Left anterior descending has previously placed stents, these are widely patent with no significant restenosis. No disease elsewise at the LAD or its branches. 3. Left circumflex has moderate irregularities, but no flow-limiting stenosis. 4. The right coronary has previously placed stents, these are widely patent with no significant restenosis. No disease elsewise. OVERALL IMPRESSION: Wide patency of the previously placed stents, no disease elsewise. Continue medical management of the coronary artery disease and cardiac risk factors. TRANSINT:[id number] Voice Confirmation ID: [id number] DOCUMENT ID: [id number] NAZANIN ESTEVES MD at 1023 CC: [id number] DICTATION DATE: 04/23/18 1253 SMALL PACKAGE AND BUNDLE SORTER CLERK: 04/23/18 1514 DEP CLI 04/23/18 [place] [id number]
== END 2018-04-23 14:15 | disposition home or self-care (01) ==
LOC: D.CATH 09:07
PROVIDERS: Internal Medicine Interventional Cardiology
DX: I25.10 Atherosclerotic heart disease of native coronary artery without angina pectoris (principal); R94.31 Abnormal electrocardiogram [ECG] [EKG]

== ENCOUNTER 2019-02-18 13:04 | Emergency (ER) | payer MEDICARE ==
[~2019-02-18] VITALS: Ht 177.8 cm; Wt 98.6 kg
[~2019-02-18 13:04] MED LIST changes: +FLOMAX0.4 MG PO
[2019-02-18 13:17] VITALS: Ht 177.8 cm; Wt 98.6 kg
[2019-02-18] MEDS ORDERED: ATIVAN0.5 MG PO (13:28)
[2019-02-18 13:41] LABS: BASOPHILS 1.1 % (0-2); EOSINOPHILS 3.6 % (0-7); HEMATOCRIT 40.4 % (42.0-54.0); HEMOGLOBIN 13.7 g/dL (13.5-17.5); LYMPHOCYTES 32.4 % (15-50); MCH 32.4 pg (26.0-34.0); MCHC 33.9 g/dL (31.0-37.0); MCV 95.5 fL (80.0-100.0); MEAN PLATELET VOLUME 9.4 fL (7.4-10.4); MONOCYTES 10.3 % (2-11); NEUTROPHILS 52.6 % (40-80); PLATELET COUNT 156 10x3/uL (130-400); RBC 4.23 10x6/uL (4.20-6.10); RDW 14.7 % (11.5-14.5); WBC 4.5 10x3/uL (4.8-10.8)
[2019-02-18 13:52] LABS: CALC OSMOLALITY 283 mosm/kg (275-300); CHLORIDE - SERUM 105 mmol/L (98-107); CREATININE - SERUM 1.4 mg/dL (0.6-1.3); GLUCOSE 110 mg/dL (74-106); POTASSIUM - SERUM 4.1 mmol/L (3.5-5.1); SODIUM 141 mmol/L (136-145); UREA NITROGEN 19 mg/dL (7-18); eGFR NON AFRICAN AMERICAN 54 mL/min (90-120)
[2019-02-18 14:01] LABS: INR 0.98 (0.85-1.17); PROTIME 12.5 SECONDS (11.6-15.0)
[2019-02-18 14:02] LABS: APTT 28.7 SECONDS (22.8-39.4)
[2019-02-18 14:08] LABS: ALBUMIN 3.5 g/dL (3.4-5.0); ALKALINE PHOSPHATASE 62 U/L (46-116); ALT (SGPT) 53 U/L (10-68); BILIRUBIN - TOTAL 0.28 mg/dL (0.2-1.3); CKMB 1.4 U/L (0.0-3.6); CREATINE KINASE 133 UL (21-232); MAGNESIUM - SERUM 1.8 mg/dL (1.8-2.4); PROTEIN - SERUM 7.1 g/dL (6.4-8.2); THYROID STIMULATING HORMONE 1.58 uIU/mL (0.36-3.74); TROPONIN-I < 0.017 ng/mL (0.000-0.060)
[2019-02-18 19:29] VITALS: BP 142/70
== END 2019-02-18 16:55 | disposition home or self-care (01) ==
LOC: D.ER 13:04
PROVIDERS: Family Medicine
DX: R51 Headache (principal); I10 Essential (primary) hypertension; E78.5 Hyperlipidemia, unspecified; J44.9 Chronic obstructive pulmonary disease, unspecified; R06.81 Apnea, not elsewhere classified; K21.9 Gastro-esophageal reflux disease without esophagitis; M19.90 Unspecified osteoarthritis, unspecified site; R20.0 Anesthesia of skin; M25.511 Pain in right shoulder; I25.119 Atherosclerotic heart disease of native coronary artery with unspecified angina pectoris; Z95.5 Presence of coronary angioplasty implant and graft